=== PATIENT | male | born 1990 | race African-American/Black ===

== ENCOUNTER 2021-04-04 11:41 | Observation (INO) | payer OTHER ==
[~2021-04-04] VITALS: Ht 175.3 cm; Wt 65.8 kg
--- NOTE | ~2021-04-04 | EMS ---
[address] [address] EMS Patient Care Report Name: PATRICK BROWN Room #: 170-2 ADM IN M.R.#: [id number] Admission: 04/04/21 Attend Phys: Abdullahi Hook MD Discharge: Date of : [birth year] Report #: [id number] THIS REPORT FOR: //name// Report Transmitted: 04/04/2021 13:35 EMS Care Summary [place], [place]/[facility] Incident [id number] @ 04/04/2021 11:07 Incident Location [address] [address] Patient PATRICK BROWN Male, 30 Years 1990 Patient Address Patient History None Reported, Patient Allergies No known allergies, Patient Medications None Reported, Chief Complaint Witnessed seizures Disposition Transported No Lights/[place] Dispatch Reason Convulsions/Seizure Transported To [facility] Narrative Arrived on scene to find our patient laying on the floor next to a bed. Calling green party stated that she had called EMS after witnessing the patient's second seizure within a 3 hour time period. Calling green party reported that at approximately 0800 that morning that the patient had gotten up to go to the bathroom and did not return for approximately 30 minutes. Calling green party stated that she then got out of bed and found the patient having a seizure in the [address] [address] EMS Patient Care Report Name: PATRICK BROWN Room #: 170-2 ADM IN Anay.#: [id number] Admission: 04/04/21 Attend Phys: Abdullahi Hook MD Discharge: Date of : [birth year] Report #: [id number] bathroom. Calling green party stated the patient refused to go to a hospital following the first seizure. Calling green party stated that prior to calling EMS she witnessed the patient collapse and have a second seizure lasting approximately 5 minutes, at which point she called EMS. Upon our arrival patient appeared to be postictal. Patient was confused and alert to name and place only. Patient had intermittent periods of incomprehensible mumbling followed by extremely slurred speech. Patient was very confused and did not want transport to the hospital. With the assistance of the calling green party we were able to convince the patient to move to the cot and the ambulance. During movement to the cot patient appeared to have an absence seizure lasting approximately 30 seconds. Patient refused to have IV access established. Patient transported and transferred to receiving facility without change in patient condition. Initial Vitals @11:24P: 89,R: 16,BP: 144/78,Pain: 0/10,GCS: 14,Glucose: 126,SpO2: 96,Revised Trauma: 12, @11:28P: 90,R: 16,BP: 110/73,Pain: 0/10,GCS: 14,CO: 11,SpO2: 96,Revised Trauma: 12, Assessments @11:13MENTAL:Place Oriented,Person Oriented,Confused,SKIN:HEENT:Head/Face: No Abnormalities,Neck/Airway: No Abnormalities,LUNG SOUNDS:Left Upper: No Abnormalities,Right Upper: No Abnormalities,Left Lower: No Abnormalities,Right Lower: No Abnormalities,ABDOMEN:Left Upper: No Abnormalities,Right Upper: No Abnormalities,Left Lower: No Abnormalities,Right Lower: No Abnormalities,PELVIS//GI:EXTREMITIES:Left Arm: No Abnormalities,Right Arm: No Abnormalities,Left Leg: No Abnormalities,Right Leg: No Abnormalities,PULSE:NEURO:Slurred Speech,Seizures, Impression Seizures Procedures @11:13ALS AssessmentResponse: UnchangedSucceeded@11:243-Lead ECGResponse: UnchangedSucceeded Timeline 11:05,Call Received 11:05,Dispatch Notified 11:07,Dispatched 11:08,En Route 11:12,On Scene 11:13,At Patient 11:13,ALS Assessment,Response: UnchangedSucceeded, 11:24,BP: 144/78 M,PULSE: 89,RR: 16 R,SPO2: 96 Ox,ETCO2: ,B,PAIN: 0,GCS: [address] [address] EMS Patient Care Report Name: PATRICK BROWN Room #: 1702 ADM IN [facility]#: [id number] Admission: 04/04/21 Attend Phys: Abdullahi Hook MD Discharge: Date of : [birth year] Report #: [id number] 14, 11:24,3-Lead ECG,Response: UnchangedSucceeded, 11:27,Depart Scene 11:28,BP: 110/73 M,PULSE: 90,RR: 16 R,SPO2: 96 Ox,ETCO2: ,BG: ,PAIN: 0,GCS: 14, 11:38,At Destination 11:51,Call Closed Disclaimer [email or web address] Copyright 2020 [employer] This EMS Care Summary contains data elements from the applicable legal record (which may be displayed differently). It is designed to provide pertinent information for the following purposes: continuity of care, clinical quality, and state data reporting. The complete legal record is available to ED staff and administrators of the receiving hospital in [employer]'s Patient Tracker. All data is provided "as is."
[2021-04-04 11:42] VITALS: BP 121/62
[2021-04-04 12:19] LABS: ABSOLUTE NEUTROPHILS 8.2 thou/uL (1.4-8.2); BASOPHILS 0.2 % (0.0-2.0); EOSINOPHILS 0.1 % (0.0-3.0); HEMATOCRIT 42.3 % (42.0-52.0); HEMOGLOBIN 13.9 gm/dL (14.0-18.0); LYMPHOCYTES 8.8 % (24.0-44.0); MCH 33.7 pg (26.0-34.0); MCHC 32.8 g/dL (28.0-37.0); MCV 102.7 fL (80.0-100.0); MONOCYTES 3.9 % (1.0-8.0); PLATELET COUNT 184 thou/uL (150-400); RBC 4.12 mil/uL (4.50-6.00); RDW 13.3 % (10.5-14.5); WBC 9.5 thou/uL (4.0-11.0)
[2021-04-04 12:21] LABS: CALCIUM 9.2 mg/dL (8.5-10.1); CREATININE 1.5 mg/dL (0.7-1.3); POTASSIUM 3.9 mmol/L (3.5-5.1)
[2021-04-04 12:32] LABS: ALBUMIN 4.2 g/dL (3.4-5.0); MAGNESIUM 2.6 mg/dL (1.8-2.4); TOTAL BILIRUBIN 0.8 mg/dL (0.2-1.0); TOTAL PROTEIN 7.3 g/dL (6.4-8.2)
[2021-04-04 14:32] LABS: URINE BILIRUBIN NEGATIVE (Negative); URINE BLOOD TRACE (Negative); URINE CLARITY CLEAR; URINE COLOR YELLOW; URINE GLUCOSE-RANDOM* NEGATIVE (Negative); URINE KETONES 1+ (Negative); URINE LEUKOCYTES-REFLEX NEGATIVE (Negative); URINE NITRITE-REFLEX NEGATIVE (Negative); URINE PROTEIN (DIPSTICK) TRACE (Negative); URINE SPECIFIC GRAVITY >= 1.030 (1.005-1.035)
[2021-04-04 14:48] LABS: AMP/METHAMP Negative (Negative); BARBITURATES Negative (Negative); BENZODIAZEPINES Negative (Negative); COCAINE Negative (Negative); METHADONE Negative (Negative); OPIATES Negative (Negative); PCP Negative (Negative)
--- NOTE | 2021-04-04 16:12 | EKG ---
[place] [address] [facility] [place] [address] ELECTROCARDIOGRAM REPORT Name: PATRICK BROWN Room #: 170-2 ADM IN M.R.#: [id number] Admission: 04/04/21 Attend Phys: bAdullahi Hook MD Discharge: Date of : [birth year] Report #: [id number] [facility] ED Test Date: 2021-04-04 Test Time: 11:43:06 Pat Name: PATRICK BROWN Department: Room: 170 Gender: M Production Support Developer: cw : 1990 Requested By: Nik Valdez Order Number: [id number] : Parker Lira Measurements Intervals [place] Rate: 85 P: 75 OR: 155 QRS: 74 QRSD: 87 T: 58 QT: 373 QTc: 444 Interpretive Statements Sinus rhythm J Point elev, probable normal early repol pattern No previous ECG available for comparison Electronically Signed On 04-04-2021 16:12:01 CDT by Parker Lira [email or web address] <ELECTRONICALLY SIGNED> By: Parker Lira MD, [facility] 04/04/21 1612 1143 1143 Parker Lira MD, FACC /EPI
[2021-04-05 04:59] LABS: HEMATOCRIT 39.3 % (42.0-52.0); HEMOGLOBIN 13.4 gm/dL (14.0-18.0); MCH 34.3 pg (26.0-34.0); MCV 100.8 fL (80.0-100.0); RBC 3.9 mil/uL (4.50-6.00); RDW 13.1 % (10.5-14.5); WBC 6.3 thou/uL (4.0-11.0)
[2021-04-05 05:26] LABS: CALCIUM 8.3 mg/dL (8.5-10.1); CREATININE 1.2 mg/dL (0.7-1.3); POTASSIUM 3.6 mmol/L (3.5-5.1)
[2021-04-05 06:51] VITALS: BP 111/64
[2021-04-05 07:31] VITALS: BP 111/64
[2021-04-05 08:39] VITALS: BP 107/64
--- NOTE | 2021-04-05 10:04 | NUR ---
ASSUMED PT CARE UPON ADMISSION FROM ED. PATIENT A&OX4 AND ABLE TO MAKE NEEDS KNOWN. PATIENT DENIES PAIN. PATIENT REPORTS ABRUPTLY STOPPING TAKING XANAX LAST WEEK AFTER BEING ON IT FOR 11 YEARS. PATIENT IV BECAME INFILTRATED, DR. GODWIN RECOMMENDED NO IV TO BE STARTED AT THIS TIME. FALL PRECAUTIONS ARE IN PLACE, EXPLAINED TO PATIENT TO CALL PRIOR TO GETTING OUT OF BED DUE TO RECENT SEIZURES. ALL FOUR SIDE RAILS ARE UP AND RAILINGS ARE PADDED.
[2021-04-05 15:50] VITALS: BP 117/73
[2021-04-05] MEDS ORDERED: KEPPRA750 MG PO (17:48)
[2021-04-05 18:04] VITALS: BP 117/73
--- NOTE | 2021-04-05 19:19 | NUR ---
PATIENT LEFT THE UNIT AT AROUND 1914.
== END 2021-04-05 19:20 | disposition home or self-care (01) ==
LOC: ER 11:41 → EROBS 14:16 → 4W 04-05 07:35
PROVIDERS: Emergency Medicine; ADMIT Hospitalist; ATTEND Hospitalist
DX: G40.909 Epilepsy, unspecified, not intractable, without status epilepticus (principal); Z20.822 Contact with and (suspected) exposure to COVID-19; R41.0 Disorientation, unspecified; Z79.899 Other long term (current) drug therapy